=== PATIENT | female | born 1985 | race African-American/Black ===

== ENCOUNTER 2025-01-21 19:36 | Emergency (ER) | payer SELFPAY ==
[~2025-01-21 19:36] MED LIST: Iopamidol 370 76% 100 ML VIAL ONE
[2025-01-21] MEDS ORDERED: Ketorolac Tromethamine 30 MG (1 mL) VIAL ONE (20:10)
[2025-01-21] MEDS ORDERED: Dexamethasone 10 MG/ML VIAL ONE (20:10)
[2025-01-21 20:35] LABS: #Basophils 0.05 10x3/uL (0.0-0.2); #Eosinophils 0.45 10x3/uL (0.0-0.5); #Monocytes 0.45 10x3/uL (0.0-1.1); #Neutrophils 6.53 10x3/uL (1.5-8.4); %Basophils 0.5 % (0.0-2.0); %Eosinophils 4.5 % (0.0-6.0); %Lymphocytes 25.4 % (18.0-47.0); %Monocytes 4.5 % (0.0-10.0); %Neutrophils 64.5 % (40.0-75.0); Hematocrit 26.6 % (34.9-44.5); Hemoglobin 7.7 g/dL (12.0-15.5); Mean Corpuscular Hemoglobin 18.8 pg (27.0-33.0); Mean Corpuscular Volume 64.9 fL (81.6-98.3); Platelet Count 386 10x3/uL (150-450); Red Blood Cell (RBC) Count 4.10 10x6/uL (3.90-5.03); White Blood Cell (WBC) Count 10.11 10x3/uL (3.5-10.5)
[2025-01-21 20:37] LABS: BHCG - Serum Negative (NEGATIVE); Pregs Control Background? CLEAR/WHITE (CLR/WHITE); Pregs Control Bar Appear? YES (CONTROL BAR)
[2025-01-21 20:43] LABS: ALT (SGPT) 12 U/L (Less than 34); AST (SGOT) 18 U/L (11-34); Albumin 3.9 g/dL (3.1-4.5); Alkaline Phosphatase 55 U/L (40-110); Anion Gap 12 mmol/L (10-20); BUN (Urea Nitrogen) 14 mg/dL (7.0-18.7); Bilirubin, Total 0.2 mg/dL (0.3-1.2); Calc. Creatinine Clearance 0 mL/min (70-130); Calcium 8.9 mg/dL (7.8-10.44); Carbon Dioxide 28 mmol/L (22-29); Chloride 103 mmol/L (98-107); Globulin 3.5 g/dL (2.4-3.5); Glucose 117 mg/dL (70-105); Potassium 3.2 mmol/L (3.5-5.1); Sodium 140 mmol/L (136-145)
[2025-01-21 21:04] LABS: Anisocytosis SLIGHT = 6-15 cells (100X) (0-5/hpf); Microcytosis MARKED = >30 cells (100X) (0-5/hpf)
[2025-01-21 21:05] LABS: Platelet Adequacy Comment Appears Adequate
[2025-01-21 21:06] LABS: Reflex for Review?? YES
== END 2025-01-21 23:10 | disposition home or self-care (01) ==
LOC: CSHERS 19:36
DX: J06.9 Acute upper respiratory infection, unspecified (principal); B97.89 Other viral agents as the cause of diseases classified elsewhere; I10 Essential (primary) hypertension
CPT/HCPCS: 36415; 70491; 80053; 83605; 84703; 85025; 85060; 87081; 87428; 87430; 96374; 96375; J1100; J1885; Q9967